=== PATIENT | male | born 1960 ===

== ENCOUNTER → 2022-05-17 14:48 | Outpatient (CLI) | payer BC, SELFPAY ==
--- NOTE | ~2022-05-17 | CT_ITS ---
EXAMINATION: CT abdomen pelvis w con DATE: 05/17/2022 15:16 INDICATION: Left lower quadrant abdominal pain. Personal history of other diseases of the digestive s ystem. TECHNIQUE: Computed tomography (CT) of the abdomen and pelvis was performed with 100 mL Omnipaque 350 intravenous contrast. Automated exposure control and iterative reconstruction technique were employe d. The dose-length product was 770.69 mGy-cm. COMPARISON: None. FINDINGS: The visualized portions of the lung bases demonstrate mild atelectasis. No pleural effusion . The heart size is normal. No pericardial effusion. There are changes of fundoplication of the stoma ch with the wrap above the diaphragm. The liver, gallbladder, spleen, pancreas, adrenal glands, and r ight kidney are normal. There is a 4 mm stone in left kidney. There is a left inguinal hernia contain ing fat. The prostate is mildly enlarged. There is diverticulosis of the colon without evidence of di verticulitis. The appendix is normal. There are no dilated loops of bowel. There is fat stranding at the root of the small bowel mesentery. There are no pathologically enlarged lymph nodes. There is no free intraperitoneal fluid. There are chronic bilateral L5 pars defects. There is 4 mm anterolisthesi s of L5 on S1. There is mild lumbar spondylosis. IMPRESSION: 1. Fat stranding at the root of the small bowel mesentery, consistent with edema versus inflammation (mesenteric panniculitis). 2. Left inguinal hernia containing fat. Reviewed, dictated and finalized at location A. IMPRESSION: 1. Fat stranding at the root of the small bowel mesentery, consistent with katherine a versus inflammation (mesenteric panniculitis). 2. Left inguinal hernia containing fat.
== END ==
DX: Z87.19 Personal history of other diseases of the digestive system (principal); K40.90 Unilateral inguinal hernia, without obstruction or gangrene, not specified as recurrent
CPT/HCPCS: 74177; Q9967